=== PATIENT | female | born 1955 | race Hispanic/Latino ===

== ENCOUNTER 2017-07-05 11:34 | Day surgery (SDC) | payer OTHER ==
[~2017-07-05 11:34] MED LIST: IOPIDINE OS ONE; MYDRIACYL OS ONE; NEOFRIN OS ONE
[2017-07-05] MEDS ORDERED: NEOFRIN OS ONE (11:55)
[2017-07-05] MEDS ORDERED: MYDRIACYL OS ONE (11:55)
[2017-07-05] MEDS ORDERED: IOPIDINE OS ONE (11:55)
[2017-07-05 13:50] VITALS: BP 149/97
== END 2017-07-05 11:35 | disposition home or self-care (01) ==
LOC: OR 11:34
PROVIDERS: ATTEND Specialist
DX: H26.492 Other secondary cataract, left eye (principal); J45.909 Unspecified asthma, uncomplicated; M06.9 Rheumatoid arthritis, unspecified; Z98.890 Other specified postprocedural states; Z85.72 Personal history of non-Hodgkin lymphomas; Z92.21 Personal history of antineoplastic chemotherapy